=== PATIENT | male | born 1940 | race Caucasian/White ===

== ENCOUNTER 2017-08-27 11:12 | Inpatient (IN) | payer OTHER, BC ==
[~2017-08-27] VITALS: Ht 170.2 cm; Wt 70.9 kg
[2017-08-27] MEDS ORDERED: LEVOTHYROXINE88 MCG PO (11:24)
[2017-08-27] MEDS ORDERED: AMLODIPINE BESYL5 MG PO (11:24)
[2017-08-27] MEDS ORDERED: BENZONATATE100 MG PO (11:25)
[2017-08-27] MEDS ORDERED: PANTOPRAZOLE SO40 MG PO (11:25)
[2017-08-27] MEDS ORDERED: AZITHROMYCIN250 MG PO (11:26)
[2017-08-27 12:27] LABS: HEMATOCRIT 35.1 % (38.0-50.0); HEMOGLOBIN 11.9 G/DL (12.5-16.6); MCH 32.1 PG (29.0-34.0); MCHC 33.9 G/DL (30.0-36.0); MCV 94.6 FL (86-99); PLATELET COUNT 153 K/uL (156-360); RBC DIS.WIDTH-CV 12.7 % (11.8-14.6); RED BLOOD COUNT 3.71 M/uL (4.00-5.50)
[2017-08-27 12:45] LABS: ALBUMIN 3.7 g/dL (3.2-4.8)
[2017-08-27 12:46] LABS: CHLORIDE 100 mEq/L (99-109); POTASSIUM 4.1 mEq/L (3.7-5.4); SODIUM 133 mEq/L (136-147)
[2017-08-27 12:48] LABS: GLUCOSE 122 mg/dL (70-99); TOTAL PROTEIN 6.5 g/dL (6.4-8.3)
[2017-08-27 12:50] LABS: TOTAL BILIRUBIN 0.4 mg/dL (0.0-1.0)
[2017-08-27 12:51] LABS: ALKALINE PHOSPHATASE 63 IU/L (3-129)
[2017-08-27 12:52] LABS: GFR ESTIMATE (CALCULATED) > 59 mL/min/ (58.99-99999)
[2017-08-27 12:53] LABS: AST (GOT) 20 IU/L (2-34); UREA NITROGEN (BUN) 23 mg/dL (9-23)
[2017-08-27 12:54] LABS: ALT (GPT) 18 IU/L (3-49)
[2017-08-27 12:57] LABS: TROP-I INTERPRETATION NEGATIVE; TROPONIN-I 0.02 ng/mL (0.0-0.30)
[2017-08-27] MEDS ORDERED: DUONEB 2.5-0.5 M3 ML AEROSOL (16:17)
[2017-08-27 20:00] VITALS: BP 157/71
[2017-08-28] VITALS (7 sets, daily range): BP systolic 135–163; BP diastolic 62–81
[2017-08-28 05:52] LABS: BASOPHIL (%) 0.1 % (0-1); EOSINOPHIL (%) 0 % (0-5); HEMATOCRIT 32.1 % (38.0-50.0); IMMATURE GRANULOCYTE (%) 0.6 % (0.0-0.7); LYMPHOCYTE COUNT 0.8 K/uL (1.0-2.8); MCH 31.6 PG (29.0-34.0); MCHC 34.3 G/DL (30.0-36.0); MCV 92.2 FL (86-99); MONOCYTE (%) 6.1 % (3-12); MONOCYTE COUNT 0.5 K/uL (0-0.8); NEUTROPHIL (%) 84.2 % (45-76); NEUTROPHIL COUNT 7.2 K/uL (1.8-6.4); PLATELET COUNT 158 K/uL (156-360); RBC DIS.WIDTH-CV 12.5 % (11.8-14.6); RBC DIS.WIDTH-SD 42.5 % (39-53); RED BLOOD COUNT 3.48 M/uL (4.00-5.50); WHITE BLOOD COUNT 8.6 K/uL (4.1-10.2)
[2017-08-28 06:10] LABS: CHLORIDE 104 MEQ/L (99-109); CREATININE 0.8 MG/DL (0.6-1.3); GFR ESTIMATE (CALCULATED) > 59 mL/min/ (58.99-99999); GLUCOSE 111 mg/dL (70-99); POTASSIUM 3.7 MEQ/L (3.7-5.4); SODIUM 136 MEQ/L (136-147); UREA NITROGEN (BUN) 11 mg/dL (9-23)
[2017-08-29 04:12] VITALS: BP 153/71
[2017-08-29 07:24] VITALS: BP 166/77
[2017-08-29 11:17] VITALS: BP 148/67
[2017-08-29 16:00] VITALS: BP 166/74
[2017-08-30] VITALS: BP 134/65
[2017-08-30 06:03] LABS: ALBUMIN 3.3 G/DL (3.2-4.8); ALKALINE PHOSPHATASE 44 IU/L (3-129); ALT (GPT) 20 IU/L (3-49); AST (GOT) 37 IU/L (2-34); CHLORIDE 104 MEQ/L (99-109); CREATININE 0.8 MG/DL (0.6-1.3); GFR ESTIMATE (CALCULATED) > 59 mL/min/ (58.99-99999); GLUCOSE 136 mg/dL (70-99); POTASSIUM 3.4 MEQ/L (3.7-5.4); SODIUM 137 MEQ/L (136-147); TOTAL BILIRUBIN 0.3 MG/DL (0.0-1.0); TOTAL PROTEIN 5.5 G/DL (6.4-8.3); UREA NITROGEN (BUN) 17 mg/dL (9-23); VANCOMYCIN, TROUGH 16.1 MCG/ML (10-20)
[2017-08-30 06:12] LABS: BASOPHIL (%) 0.2 % (0-1); EOSINOPHIL (%) 0 % (0-5); HEMATOCRIT 30.9 % (38.0-50.0); HEMOGLOBIN 10.6 G/DL (12.5-16.6); LYMPHOCYTE (%) 6.7 % (15-42); LYMPHOCYTE COUNT 0.6 K/uL (1.0-2.8); MCH 31.9 PG (29.0-34.0); MCHC 34.3 G/DL (30.0-36.0); MCV 93.1 FL (86-99); MONOCYTE (%) 3.5 % (3-12); MONOCYTE COUNT 0.3 K/uL (0-0.8); NEUTROPHIL (%) 88.6 % (45-76); NEUTROPHIL COUNT 8.3 K/uL (1.8-6.4); PLATELET COUNT 185 K/uL (156-360); RBC DIS.WIDTH-CV 12.7 % (11.8-14.6); RBC DIS.WIDTH-SD 43.6 % (39-53); RED BLOOD COUNT 3.32 M/uL (4.00-5.50); WHITE BLOOD COUNT 9.4 K/uL (4.1-10.2)
[2017-08-30 08:13] VITALS: BP 171/80
[2017-08-30] MEDS ORDERED: METOPROLOL TART25 MG PO (08:17)
[2017-08-30] MEDS ORDERED: PREDNISONE10 MG PO (08:17)
[2017-08-30] MEDS ORDERED: AUGMENTIN875 MG PO (08:17)
[2017-08-30] MEDS ORDERED: LEVAQUIN750 MG PO (09:39)
== END 2017-08-30 09:57 | disposition home or self-care (01) | DRG 177 ==
LOC: EME 11:12 → 5SOUTH 15:49 → EDOF 15:49 → ENRESERV 15:50 → 5SOUTH 19:09 → ENPENDDIS 08-30 → 5SOUTH 08-30 09:57
PROVIDERS: Emergency Medicine; Hospitalist
DX: J69.0 Pneumonitis due to inhalation of food and vomit (principal); J86.0 Pyothorax with fistula; J96.01 Acute respiratory failure with hypoxia; J44.9 Chronic obstructive pulmonary disease, unspecified; R59.0 Localized enlarged lymph nodes; I10 Essential (primary) hypertension; E03.9 Hypothyroidism, unspecified; K21.9 Gastro-esophageal reflux disease without esophagitis; Z93.0 Tracheostomy status; Z85.819 Personal history of malignant neoplasm of unspecified site of lip, oral cavity, and pharynx; Z90.02 Acquired absence of larynx; Z92.3 Personal history of irradiation; Z92.21 Personal history of antineoplastic chemotherapy; Z87.891 Personal history of nicotine dependence; Z85.21 Personal history of malignant neoplasm of larynx; Z83.3 Family history of diabetes mellitus; Z82.49 Family history of ischemic heart disease and other diseases of the circulatory system
CPT/HCPCS: 31720; 71045; 71275; 80048; 80053; 80202; 83605; 84484; 85025; 85027; 87040; 87070; 87077; 87147; 87186; 87205; 87449; 87502; 92610 GN; 93005; 94640 76; 94760; 94799; 99202; 99281; 99285; J0295; J0456; J1956; J2920; J3370; J7030; J7050; J7644; S0028